=== PATIENT | male | born 1995 | race Caucasian/White ===

== ENCOUNTER 2020-12-03 17:08 | Emergency (ER) | payer OTHER ==
[~2020-12-03 17:08] MED LIST: PROTONIX40 MG PO
[2020-12-03] MEDS ORDERED: CARAFATE1 G1 PO (21:01)
[2020-12-03] MEDS ORDERED: PROTONIX 40MG T40 MG PO (21:01)
[2020-12-20] MEDS ORDERED: SYMBICORT 80-10.2 GM INH (14:16)
[2020-12-20] MEDS ORDERED: VENTOLIN HFA IN18 GM INH (14:17)
[2020-12-20] MEDS ORDERED: BENTYL10 MG PO (14:19)
[2020-12-23] MEDS ORDERED: BENTYL10 MG PO ×2 (11:55→13:01)
[2020-12-23] MEDS ORDERED: COLESTID 1GM TAB1 GM PO ×2 (11:57→13:01)
== END 2020-12-03 21:15 | disposition home or self-care (01) ==
LOC: FER 17:08
DX: K21.00 Gastro-esophageal reflux disease with esophagitis, without bleeding (principal); Z87.19 Personal history of other diseases of the digestive system
CPT/HCPCS: 71250

== ENCOUNTER 2020-12-11 01:58 | Emergency (ER) | payer OTHER ==
[~2020-12-11 01:58] MED LIST changes: +CARAFATE1 G1 PO; +PROTONIX 40MG T40 MG PO
[2020-12-11 02:23] LABS: BASOPHIL 0.8 % (0-2); EOSINOPHIL 0.4 % (0-5); HCT 40.3 % (42.0-52.0); HGB 14.9 g/dl (13.2-18.0); LYMPHOCYTE 25.2 % (15-48); MCH 29.9 pg (25.0-31.0); MCV 80.8 fL (78.0-100.0); MONOCYTE 7.5 % (0-12); MPV 9.8 fL (6.0-9.5); NEUTROPHIL 65.8 % (41-80); NRBC 0; PLT 250 K/uL (150-400); RBC 4.99 M/uL (4.70-6.00); RDW 12.1 % (11.5-14.0); WBC 7.5 K/uL (4.0-10.5)
[2020-12-11 02:39] LABS: ALBUMIN 4.9 g/dL (3.4-5.0); BILIRUBIN - TOTAL 1.7 mg/dL (0.2-1.0); BUN/CREAT RATIO (CALC) 11.4 RATIO; CREATININE 1.14 mg/dL (0.67-1.17); GLOBULIN (CALCULATION) 2.8 g/dL; POTASSIUM 3.2 mmol/L (3.5-5.1); TOTAL PROTEIN 7.7 g/dL (6.4-8.2)
[2020-12-11] MEDS ORDERED: ATARAX25 MG PO (04:45)
[2020-12-20] MEDS ORDERED: SYMBICORT 80-10.2 GM INH (14:16)
[2020-12-20] MEDS ORDERED: VENTOLIN HFA IN18 GM INH (14:17)
[2020-12-20] MEDS ORDERED: BENTYL10 MG PO (14:19)
[2020-12-23] MEDS ORDERED: BENTYL10 MG PO ×2 (11:55→13:01)
[2020-12-23] MEDS ORDERED: COLESTID 1GM TAB1 GM PO ×2 (11:57→13:01)
== END 2020-12-11 05:19 | disposition home or self-care (01) ==
LOC: FER 01:58
PROVIDERS: Emergency Medicine Emergency Medical Services
DX: F41.9 Anxiety disorder, unspecified (principal); J45.909 Unspecified asthma, uncomplicated; Z88.8 Allergy status to other drugs, medicaments and biological substances; Z87.19 Personal history of other diseases of the digestive system
CPT/HCPCS: 36415; 71045; 80053; 85025; 93005; J2060

== ENCOUNTER → 2020-12-23 | Day surgery (SDC) | payer OTHER ==
[~2020-12-23] MED LIST changes: +ATARAX25 MG PO; +BENTYL10 MG PO; +COLESTID 1GM TAB1 GM PO; +SYMBICORT 80-10.2 GM INH; +VENTOLIN HFA IN18 GM INH
== END | disposition home or self-care (01) ==
LOC: FAS 08:52
DX: R13.10 Dysphagia, unspecified (principal); R19.7 Diarrhea, unspecified; F41.9 Anxiety disorder, unspecified; J45.909 Unspecified asthma, uncomplicated; Z20.822 Contact with and (suspected) exposure to COVID-19; Z87.19 Personal history of other diseases of the digestive system; Z88.8 Allergy status to other drugs, medicaments and biological substances; Z82.49 Family history of ischemic heart disease and other diseases of the circulatory system; Z87.891 Personal history of nicotine dependence
CPT/HCPCS: J2250; J2704; J7120